=== PATIENT | male | born 1975 | race Caucasian/White ===

== ENCOUNTER 2019-01-16 19:47 | Emergency (ER) | payer OTHER ==
--- NOTE | 2019-01-16 21:29 | EDM.PDOC ---
ED HPI GENERAL MEDICAL PROBLEM - General Chief Complaint: Bite:Animal, Insect Stated Complaint: REACTION TO BUG BITE ON LEFT FOOT Time Seen by Provider: 01/16/19 20:51 Source of Information: Reports: Patient History Limitations: Reports: No Limitations - History of Present Illness INITIAL COMMENTS - FREE TEXT/NARRATIVE: bit by a horse fly around 4 pm to the left foot; he took claritin; it continued to swell; he denies any sob or difficulty with swallowing, fat tongue. Onset: Today Location: Reports: Lower Extremity, Left (left foot) Quality: Reports: Throbbing Improves with: Reports: None Worsens with: Reports: None Associated Symptoms: Reports: Other (redness and swelling.) Treatments [employer]: Reports: Other (see below) (claritin) - Related Data Allergies Allergy/AdvReac Type Severity Reaction Status Date / Time No Known Allergies Allergy Verified 01/16/19 21:04 Home Meds: Home Meds ALPRAZolam [Alprazolam] 0.25 mg PO ASDIRECTED 01/16/19 [History] Fenofibrate Nanocrystallized [Fenofibrate] 1 tab PO DAILY 01/16/19 [History] Loratadine [Claritin] 1 tab PO DAILY 01/16/19 [History] Omeprazole 20 mg PO DAILY 01/16/19 [History] atorvaSTATin [Lipitor] 20 mg PO DAILY 01/16/19 [History] valACYclovir HCl [valACYclovir] 1 gm PO ASDIRECTED 01/16/19 [History] Past Medical History HEENT History: Reports: Allergic Rhinitis Cardiovascular History: Reports: High Cholesterol, Hypertension Gastrointestinal History: Reports: GERD Genitourinary History: Reports: Renal Calculus Other Hematologic History: hypetriglyceridemia - Infectious Disease History Infectious Disease History: Reports: Chicken Pox, Herpes Social & Family History - Tobacco Use Smoking Status *Q: Former Smoker Used Tobacco, but Quit: Yes Month/Year Tobacco Last Used: july 2018 ED ROS GENERAL - Review of Systems Review Of Systems: See Below Constitutional: Reports: No Symptoms Respiratory: Reports: No Symptoms Cardiovascular: Reports: No Symptoms Musculoskeletal: Reports: Foot Pain (left foot pain and swelling) Skin: Reports: Erythema, Other (swelling to left foot) Neurological: Reports: No Symptoms Psychiatric: Reports: No Symptoms ED EXAM, ANIMAL BITE - Physical Exam Exam: See Below Exam Limited By: No Limitations General Appearance: Alert, WD/WN, No Apparent Distress Head: Atraumatic, Normocephalic Neck: Normal Inspection, Supple, Full Range of Motion Respiratory/Chest: No Respiratory Distress, Lungs Clear, Normal Breath Sounds Cardiovascular: Regular Rate, Rhythm Peripheral Pulses: 4+: Posterior Tibial (L), Dorsalis Pedis (L) GI/Abdominal: Normal Bowel Sounds, Soft Back Exam: Full Range of Motion Extremities: Limited Range of Motion, Increased Warmth, Redness, Other (swelling ) Neurological: Alert, Oriented Psychiatric: Normal Affect, Normal Mood Course - Vital Signs Last Recorded V/S: Last Vital Signs Temp 96.7 F 01/16/19 21:13 Pulse 86 01/16/19 21:13 Resp 18 01/16/19 21:13 BP 127/89 01/16/19 21:13 Pulse Ox 98 01/16/19 21:13 - Orders/Labs/Meds Meds: Medications Discontinued Medications Generic Name Dose Route Start Last Admin Trade Name Freq PRN Reason Stop Dose Admin Diphenhydramine HCl 50 mg 01/16/19 21:32 01/16/19 21:43 Benadryl IM 01/16/19 21:33 50 mg ONETIME ONE Administration Methylprednisolone Sodium Succinate 125 mg 01/16/19 21:31 01/16/19 21:44 Solu-Medrol IM 01/16/19 21:32 125 mg ONETIME ONE Administration Departure - Departure Time of Disposition: 21:35 Disposition: Home, Self-Care 01 Condition: Good Clinical Impression: Allergic reaction to insect bite - Discharge Information *PRESCRIPTION DRUG MONITORING PROGRAM REVIEWED*: Not Applicable *COPY OF PRESCRIPTION DRUG MONITORING REPORT IN PATIENT MINI: Not Applicable Instructions: Insect Bite, Adult, [id number] Referrals: PCP,None [Primary Care Provider] - Forms: ED Department Discharge Additional Instructions: Elevate leg Ice will be helpful with pain and swelling Tylenol for pain May take Benadryl again tomorrow; avoid driving when you take this Follow up with your doctor Return with concerns - Problem List & Annotations (1) Allergic reaction to insect bite SNOMED Code(s): 952286419 Code(s): Z91.038 - OTHER INSECT ALLERGY STATUS Status: Acute Priority: Medium - Problem List Review Problem List Initiated/Reviewed/Updated: Yes
[2019-01-16] MEDS ORDERED: methylPREDNISolone Sodium Succinate 125 MG/2 ML SDV IM ONE (21:31)
[2019-01-16] MEDS ORDERED: diphenhydrAMINE 50 MG/ML SDV IM ONE (21:32)
== END 2019-01-16 21:51 | disposition home or self-care (01) ==
LOC: JP.ED 19:47
DX: T63.481A Toxic effect of venom of other arthropod, accidental (unintentional), initial encounter (principal); E78.00 Pure hypercholesterolemia, unspecified; E78.1 Pure hyperglyceridemia; I10 Essential (primary) hypertension; K21.9 Gastro-esophageal reflux disease without esophagitis; Z79.899 Other long term (current) drug therapy; Z87.442 Personal history of urinary calculi; Z87.891 Personal history of nicotine dependence
CPT/HCPCS: 96372; 99281; J1200; J2930